=== PATIENT | female | born 1990 | race Caucasian/White ===

== ENCOUNTER 2017-04-23 12:31 | Emergency (ER) | payer OTHER ==
[2017-04-23 12:37] VITALS: BP 186/119; PULSE 92; RESP 17; TEMP 97.9; O2SAT 95
--- NOTE | 2017-04-23 13:10 | EDPHY ---
H & P Time Seen by Provider: 04/23/17 12:46 HPI/ROS: CHIEF COMPLAINT: Lumbar back pain x3 weeks HISTORY OF PRESENT ILLNESS: 26-year-old female generally healthy complaining of atraumatic lumbar back pain for the past 3 weeks which started after she was running. Did not sustain direct trauma or fall. She has been experiencing intermittent left lower extremity radicular symptoms. No incontinence no retention no saddle anesthesia. She has been followed by a chiropractor ordered an MRI which was obtained 3 days ago. The results of which are still pending. This was obtained on outpatient [facility]. She comes to the ER today, Tuesday, per complaining of pain not sure where she should go next. Pain is reproducible with certain positions specifically laying supine or standing directly erect. No fever no chills no nausea no vomiting. No abdominal pain. No urinary abnormality. PRIMARY CARE PROVIDER: REVIEW OF SYSTEMS: A ten point review of systems was performed and is negative with the exception of the items mentioned in the HPI PAST MEDICAL & SURGICAL HISTORY: No pertinent medical or surgical history SOCIAL HISTORY: No IV drug use history. PHYSICAL EXAM (Prior to examination, patient consented to physical exam, hands were washed and my usual and customary physical exam procedures followed) 1) GENERAL: Well-developed, well-nourished, alert and oriented. Patient appears uncomfortable if she is standing fully erect. 2) HEAD: Normocephalic, atraumatic 3) HEENT: Pupils equal, round, reactive to light bilaterally. Sclera anicteric. Nasopharynx, oropharynx, clear, no lesions. 4) NECK: Full range of motion, no meningeal signs. 5) LUNGS: Clear auscultation bilaterally, no wheezes, no rhonchi, no retractions. 6) HEART: Regular rate and rhythm, no murmur, no heave, no gallop. 7) ABDOMEN: No guarding, no rebound, no focal tenderness, negative McBurney's, negative Dempsey's, negative Rovsing's, negative peritoneal sign, 8) MUSCULOSKELETAL: Moving all extremities, no focal areas of tenderness, no obvious trauma. No peripheral edema or discoloration. 9) BACK: tender to palpation paraspinous muscle. No CVA tenderness, no midline vertebral tenderness, no fluctuance, no step-off, no obvious trauma, no visual or palpable abnormality. Patella, Achilles reflexes intact to bilateral strength 5/5 10) SKIN: No rash, no petechiae. 11) NEURO: Awake, alert, and oriented to person, place and time. Answers questions appropriately. There were no obvious focal neurologic abnormalities. No cerebellar dysfunction. Normal steady gait. Upper and lower extremities bilaterally with strength 5 / 5, reflexes 2+.. DIFFERENTIAL DIAGNOSIS: In no particular order, including but not limited to, fracture, sprain/strain, cauda equina, spinal infectious etiology. MEDICAL DECISION MAKING Lower index of suspicion for cauda equina, epidural abscess, epidural hematoma, lumbar myositis, diskitis, as the patient is neurologically intact in the lower extremities, has patella and Achilles reflexes intact and equal bilaterally, has no neurologic deficits, no incontinence, no retention, no midline pain, no fluctuance, afebrile, no flulike symptoms. Pain may be secondary to muscular strain, may be secondary to discogenic etiology. At this point I do not identify definitive indication for emergent MRI, especially since patient an MRI performed 4 days ago at an outpatient facility. I recommend follow up with Neurosurgery in given her this follow-up information, the meantime starting her on a Medrol Dosepak, analgesia, Lidoderm patches. She has no history of adverse reaction to steroids or history of psychiatric disease. Patient given acute back pain precautions. Patient verbalizes understanding of discharge instructions. I believe them be competent decision-makers. All questions and concerns have been addressed by me. Ample opportunity for questions have been provided . The patient understands that this diagnosis is provisional and can never be 100% accurate. Usual and customary warnings were given concerning the clinical impression and all the patient's questions were answered. The patient was instructed to return to the emergency department should her symptoms worsen or return, or develop any new symptoms, otherwise to followup as directed in discharge instructions. Care of patient under supervision of secondary supervising physician Dr Zane Torres. Smoking Status: Never smoked Constitutional: Initial Vital Signs Temperature (C) 36.6 C 04/23/17 12:34 Heart Rate 92 04/23/17 12:34 Respiratory Rate 17 04/23/17 12:34 Blood Pressure 186/119 H 04/23/17 12:34 O2 Sat (%) 95 04/23/17 12:34 O2 Delivery Mode Room Air Allergies/Adverse Reactions: No Known Allergies Allergy (Unverified 04/23/17 12:34) Home Medications: Medication Instructions Recorded Hydrocodone/APAP 5/325 [[place] 1 tab PO Q6 PRN #15 tab 04/23/17 5/325 (RX)] Lidocaine 5% [Lidoderm 5% Patch 1 ea TD BID #30 patch 04/23/17 (*)] Lo Loestrin Fe 1-10 Tablet 04/23/17 methylPREDNISolone [Medrol Dose 4 mg PO DAILY #1 ea 04/23/17 Rafael] MDM/Departure - Depart Disposition: Home, Routine, Self-Care Clinical Impression: Back pain Qualifiers: Back pain location: low back pain Chronicity: acute Back pain laterality: midline Sciatica presence: with sciatica Sciatica laterality: sciatica of left side Qualified Code(s): M54.42 - Lumbago with sciatica, left side Condition: Good Instructions: Back Pain (ED) Additional Instructions: Seek medical attention if you develop new or worsening pain, if you develop bladder or bowel dysfunction, numbness around your perineum, foot drop, or any other symptoms that concern you. Prescriptions: Hydrocodone/APAP 5/325 [[place] 5/325 (RX)] 1 tab PO Q6 PRN #15 tab PRN Reason: Pain, Severe Lidocaine 5% [Lidoderm 5% Patch (*)] 1 ea TD BID #30 patch methylPREDNISolone [Medrol Dose Rafael] 4 mg PO DAILY #1 ea Referrals: Esequiel Mendez MD [Medical Doctor] - As per Instructions
== END 2017-04-23 13:32 | disposition home or self-care (01) ==
DX: M54.42 Lumbago with sciatica, left side (principal)